=== PATIENT | female | born 1975 | race Caucasian/White ===

== ENCOUNTER 2018-04-10 21:28 | Inpatient (IN) | payer MEDICAID, OTHER ==
[~2018-04-10] VITALS: Ht 177.8 cm; Wt 95.5 kg
[~2018-04-10 21:28] MED LIST: OLAN5TAB2 PO
[2018-04-10 23:13] LABS: BASOPHILS % (AUTO) 0.7 % (0.0-2.0); EOSINOPHILS % (AUTO) 1.9 % (1.0-6.0); HEMATOCRIT 35.1 % (36-46); HEMOGLOBIN 11.5 g/dL (12.0-16.0); LYMPHOCYTES % (AUTO) 23.3 % (22.0-44.0); MEAN CORPUSCULAR HEMOGLOBIN 25.7 pg (26.0-34.0); MEAN CORPUSCULAR HGB CONC 32.7 G/dL (31.0-37.0); MEAN CORPUSCULAR VOLUME 79 fL (80-100); MONOCYTES # (AUTO) 0.5 K/uL (0.1-1.0); MONOCYTES % (AUTO) 6.1 % (2.0-9.0); NEUTROPHILS # (AUTO) 5.9 K/uL (1.8-7.7); PLATELET COUNT (AUTO) 304 K/uL (150-450); RED BLOOD CELL COUNT(AUTO) 4.48 MIL/uL (4.00-5.20); RED CELL DISTRIBUTION WIDTH 18.5 % (11.5-14.5)
[2018-04-10 23:27] LABS: ANION GAP 9 mmol/L (8-16); CARBON DIOXIDE 28 mmol/L (22-29); CHLORIDE 103 mmol/L (98-107); CREATININE 0.79 mg/dL (0.60-1.30); GLOMERULAR FILTR. RATE CALC > 60 mL/min (>60); GLUCOSE,RANDOM 109 mg/dL (70-110); POTASSIUM 3.9 mmol/L (3.5-5.1); SODIUM SERUM 140 mmol/L (136-145); UREA NITROGEN, BLOOD 7 mg/dL (7-18)
[2018-04-10 23:34] LABS: ALANINE AMINOTRANSFERASE 30 U/L (12-78); ALBUMIN 4.1 g/dL (3.4-5.0); ALKALINE PHOSPHATASE 67 U/L (46-116); ASPARTATE AMINOTRANSFERASE 23 U/L (15-37); BILIRUBIN,TOTAL 0.5 mg/dL (0.1-1.0); TOTAL PROTEIN, SERUM 7.6 g/dL (6.4-8.2)
[2018-04-11] MEDS ORDERED: ZOLPIDEM TARTRATE 10 MG TABLET PO PRN (01:45)
[2018-04-11] MEDS ORDERED: HALOPERIDOL 5 MG TABLET PO PRN (01:45)
[2018-04-11] MEDS ORDERED: LORazepam 2 MG TABLET PO PRN (01:45)
[2018-04-11] MEDS ORDERED: LORazepam 2 MG/ML VIAL IM ONE (02:15)
[2018-04-11] MEDS ORDERED: DiphenhydrAMINE HCL 50 MG/ML VIAL IM ONE (02:15)
[2018-04-11] MEDS ORDERED: HALOPERIDOL LACTATE 5 MG/ML VIAL IM ONE (02:15)
[2018-04-11 05:37] VITALS: BP 130/70
[2018-04-11] MEDS: OLANZapine 5 MG TABLET PO SCH ×2 (09:45→17:08)
[2018-04-12 05:57] VITALS: BP 131/80
[2018-04-12 08:16] VITALS: BP 129/71
[2018-04-12 08:26] LABS: CHOL/HDL RATIO 2.9 (3.9-5.7)
[2018-04-12] MEDS: OLANZapine 5 MG TABLET PO SCH ×2 (09:45→16:20)
[2018-04-12 20:32] VITALS: BP 136/83
[2018-04-13 00:30] VITALS: BP 141/97
[2018-04-13 08:20] VITALS: BP 154/93
[2018-04-13] MEDS: OLANZapine 5 MG TABLET PO SCH (08:40)
== END 2018-04-13 14:30 | disposition home or self-care (01) | DRG 751 ==
LOC: EMS 21:30 → B3A 04-11 04:21
PROVIDERS: ATTEND Psychiatry & Neurology Child & Adolescent Psychiatry
DX: F29 Unspecified psychosis not due to a substance or known physiological condition (principal); Z78.1 Physical restraint status; F12.90 Cannabis use, unspecified, uncomplicated; F10.20 Alcohol dependence, uncomplicated; R03.0 Elevated blood-pressure reading, without diagnosis of hypertension; D64.9 Anemia, unspecified
CPT/HCPCS: 87081; 96372; 99285; G0480; J1200; J1630; J2060

== ENCOUNTER 2019-08-03 12:29 | Inpatient (IN) | payer MEDICAID, OTHER ==
[~2019-08-03] VITALS: Ht 175.3 cm; Wt 82.7 kg
[2019-08-03 16:59] LABS: AMPHET/METH SCREEN,URINE POSITIVE (NEGATIVE); BARBITURATE SCREEN, URINE NEGATIVE (NEGATIVE); BENZODIAZEPINES SCREEN,URINE NEGATIVE (NEGATIVE); CANNABINOID SCREEN,URINE POSITIVE (NEGATIVE); COCAINE SCREEN,URINE NEGATIVE (NEGATIVE); METHADONE SCREEN, URINE NEGATIVE (NEGATIVE); OPIATE SCREEN,URINE NEGATIVE (NEGATIVE); PHENCYCLIDINE SCREEN,URINE NEGATIVE (NEGATIVE)
[2019-08-03] MEDS ORDERED: TUBERCULIN, PURIFIED PROTEIN DERIVATIVE 5 TU/0.1 ML SYRINGE ID ONE (17:00)
[2019-08-03] MEDS ORDERED: MAG HYDROX/AL HYDROX/SIMETH ES 30 ML SUSPENSION UDCUP PO PRN (17:00)
[2019-08-03] MEDS ORDERED: LORazepam 2 MG TABLET PO PRN (17:00)
[2019-08-03] MEDS ORDERED: ZOLPIDEM TARTRATE 10 MG TABLET PO PRN (17:00)
[2019-08-03] MEDS ORDERED: MAGNESIUM HYDROXIDE SUSPENSION 30 ML UDCUP PO PRN (17:00)
[2019-08-03] MEDS ORDERED: LOPERAMIDE HCL 2 MG CAPSULE PO PRN (17:00)
[2019-08-03] MEDS ORDERED: OLANZapine 5 MG RAPDIS TABLET PO PRN (17:00)
[2019-08-03] MEDS ORDERED: HydrOXYzine PAMOATE 50 MG CAPSULE PO PRN (17:00)
[2019-08-03] MEDS ORDERED: PROMETHAZINE HCL 25 MG TABLET PO PRN (17:00)
[2019-08-03] MEDS ORDERED: ACETAMINOPHEN 325 MG TABLET PO PRN (17:00)
[2019-08-03] MEDS ORDERED: GuaiFENesin/D-METHORPHAN [SUGAR-FREE] 200-20MG/10 ML SYRUP UDCUP PO PRN (17:00)
[2019-08-03] MEDS ORDERED: LORazepam 2 MG/ML VIAL IM ONE (19:00)
[2019-08-03] MEDS ORDERED: HALOPERIDOL LACTATE 5 MG/ML VIAL IM ONE (19:00)
[2019-08-03] MEDS ORDERED: DiphenhydrAMINE HCL 50 MG/ML VIAL IM ONE (19:00)
[2019-08-03] MEDS: THIAMINE HCL 100 MG TABLET PO SCH (19:23)
[2019-08-03] MEDS: DIVALPROEX SODIUM 500 MG ER TABLET PO SCH (20:47)
[2019-08-03] MEDS: OLANZapine 5 MG RAPDIS TABLET PO SCH (20:47)
[2019-08-03] MEDS ORDERED: INFLUENZA VIRUS VACCINE QVS 2019-20 (3YR+)/PF 60 MCG/0.5 ML SYRINGE IM ONE (22:15)
[2019-08-04] MEDS: NALTREXONE HCL 50 MG TABLET PO SCH (08:59)
[2019-08-04] MEDS: MULTIVITAMINS WITH MINERALS, THERAPEUTIC TABLET PO SCH (08:59)
[2019-08-04] MEDS: FOLIC ACID 1 MG TABLET PO SCH (08:59)
[2019-08-04] MEDS: THIAMINE HCL 100 MG TABLET PO SCH ×2 (09:00→19:49)
[2019-08-04] MEDS: METOPROLOL TARTRATE 25 MG TABLET PO SCH (10:42)
[2019-08-04 12:59] VITALS: BP 142/80
[2019-08-04 16:20] VITALS: BP 128/78
[2019-08-04] MEDS: OLANZapine 5 MG RAPDIS TABLET PO SCH (20:14)
[2019-08-04] MEDS: DIVALPROEX SODIUM 500 MG ER TABLET PO SCH (20:14)
[2019-08-05 08:25] LABS: HEMOGLOBIN A1C 5.8 % (4.5-6.2)
[2019-08-05 08:45] LABS: CHOL/HDL RATIO 2.9 (3.9-5.7); FREE T4 (FREE THYROXINE) 1.1 ng/dL (0.76-1.46); THYROID STIMULATING HORMONE 0.88 uIU/mL (0.36-3.74)
[2019-08-05 08:56] VITALS: BP 150/91
[2019-08-05] MEDS: NALTREXONE HCL 50 MG TABLET PO SCH (08:57)
[2019-08-05] MEDS: METOPROLOL TARTRATE 25 MG TABLET PO SCH (08:57)
[2019-08-05] MEDS: THIAMINE HCL 100 MG TABLET PO SCH ×2 (09:00→16:11)
[2019-08-05] MEDS: FOLIC ACID 1 MG TABLET PO SCH (09:00)
[2019-08-05] MEDS: MULTIVITAMINS WITH MINERALS, THERAPEUTIC TABLET PO SCH (09:00)
[2019-08-05] MEDS ORDERED: DIVA500T52 PO (12:54)
[2019-08-05] MEDS ORDERED: OLAN5TAB30 PO (12:54)
[2019-08-05] MEDS ORDERED: NALT50TA PO (12:54)
[2019-08-05 16:56] VITALS: BP 155/79
[2019-08-05] MEDS: DIVALPROEX SODIUM 500 MG ER TABLET PO SCH (20:15)
[2019-08-05] MEDS ORDERED: OLANZapine 10 MG RAPDIS TABLET PO SCH (21:00)
[2019-08-06 08:24] VITALS: BP 168/85
[2019-08-06] MEDS: THIAMINE HCL 100 MG TABLET PO SCH (09:19)
[2019-08-06] MEDS: NALTREXONE HCL 50 MG TABLET PO SCH (09:19)
[2019-08-06] MEDS: FOLIC ACID 1 MG TABLET PO SCH (09:19)
[2019-08-06] MEDS: METOPROLOL TARTRATE 25 MG TABLET PO SCH (09:19)
[2019-08-06] MEDS: MULTIVITAMINS WITH MINERALS, THERAPEUTIC TABLET PO SCH (09:19)
== END 2019-08-06 15:00 | disposition home or self-care (01) | DRG 750 ==
LOC: EMS 12:30 → 3EC 18:05
PROVIDERS: ADMIT Psychiatry & Neurology Psychiatry; ATTEND Psychiatry & Neurology Psychiatry
DX: F20.0 Paranoid schizophrenia (principal); Z91.19 Patient's noncompliance with other medical treatment and regimen; F12.90 Cannabis use, unspecified, uncomplicated; F17.210 Nicotine dependence, cigarettes, uncomplicated; I10 Essential (primary) hypertension; F15.10 Other stimulant abuse, uncomplicated; Z53.20 Procedure and treatment not carried out because of patient's decision for unspecified reasons
CPT/HCPCS: 83036; 84439; 84443; 86592; 93005; 96372; 99406; J1200; J1630; J2060

== ENCOUNTER 2020-05-06 16:38 | Inpatient (IN) | payer MEDICAID ==
[~2020-05-06] VITALS: Ht 172.7 cm; Wt 81.8 kg
[~2020-05-06 16:38] MED LIST changes: +DIVA-80 PO; +NALT50TA PO; -OLAN5TAB2 PO; +OLAN5TAB30 PO
[2020-05-06] MEDS ORDERED: DiphenhydrAMINE HCL 50 MG/ML VIAL IM ONE (18:45)
[2020-05-06] MEDS ORDERED: HALOPERIDOL LACTATE 5 MG/ML VIAL IM ONE (18:45)
[2020-05-06] MEDS ORDERED: LORazepam 2 MG/ML VIAL IM ONE (18:45)
[2020-05-06 19:38] LABS: BASOPHILS % (AUTO) 0.6 % (0.0-2.0); EOSINOPHILS % (AUTO) 0.5 % (1.0-6.0); HEMATOCRIT 36.1 % (36-46); HEMOGLOBIN 11.3 g/dL (12.0-16.0); LYMPHOCYTES # (AUTO) 1.2 K/uL (1.0-4.8); LYMPHOCYTES % (AUTO) 18.3 % (22.0-44.0); MEAN CORPUSCULAR HEMOGLOBIN 25.2 pg (26.0-34.0); MEAN CORPUSCULAR HGB CONC 31.2 G/dL (31.0-37.0); MEAN CORPUSCULAR VOLUME 81 fL (80-100); MONOCYTES # (AUTO) 0.3 K/uL (0.1-1.0); MONOCYTES % (AUTO) 5.2 % (2.0-9.0); NEUTROPHILS # (AUTO) 4.9 K/uL (1.8-7.7); NEUTROPHILS % (AUTO) 75.4 % (40.0-70.0); PLATELET COUNT (AUTO) 302 K/uL (150-450); RED BLOOD CELL COUNT(AUTO) 4.47 MIL/uL (4.00-5.20); RED CELL DISTRIBUTION WIDTH 19.5 % (11.5-14.5)
[2020-05-06 19:55] LABS: ANION GAP 13 mmol/L (8-16); CALCIUM, TOTAL 9.4 mg/dL (8.8-10.5); CARBON DIOXIDE 24 mmol/L (22-29); CHLORIDE 99 mmol/L (98-107); CREATININE 1.12 mg/dL (0.60-1.30); GLOMERULAR FILTR. RATE CALC 53 mL/min (>60); GLUCOSE,RANDOM 108 mg/dL (70-110); POTASSIUM 3.7 mmol/L (3.5-5.1); SODIUM SERUM 136 mmol/L (136-145); UREA NITROGEN, BLOOD 21 mg/dL (7-18)
[2020-05-06 20:01] LABS: ALANINE AMINOTRANSFERASE 28 U/L (12-78); ALBUMIN 4.3 g/dL (3.4-5.0); ALKALINE PHOSPHATASE 75 U/L (46-116); ASPARTATE AMINOTRANSFERASE 37 U/L (15-37); BILIRUBIN,TOTAL 0.8 mg/dL (0.1-1.0); TOTAL PROTEIN, SERUM 7.8 g/dL (6.4-8.2)
[2020-05-06 20:35] LABS: HCG,QUANTITATIVE < 1 mIU/mL (0-6)
[2020-05-06] MEDS ORDERED: LORazepam 2 MG TABLET PO PRN (20:45)
[2020-05-06] MEDS ORDERED: ZOLPIDEM TARTRATE 10 MG TABLET PO PRN (20:45)
[2020-05-06] MEDS ORDERED: HALOPERIDOL 5 MG TABLET PO PRN (20:45)
[2020-05-06 22:16] LABS: AMPHET/METH SCREEN,URINE POSITIVE (NEGATIVE); BARBITURATE SCREEN, URINE NEGATIVE (NEGATIVE); BENZODIAZEPINES SCREEN,URINE NEGATIVE (NEGATIVE); CANNABINOID SCREEN,URINE POSITIVE (NEGATIVE); COCAINE SCREEN,URINE NEGATIVE (NEGATIVE); METHADONE SCREEN, URINE NEGATIVE (NEGATIVE); OPIATE SCREEN,URINE NEGATIVE (NEGATIVE)
[2020-05-06 22:20] LABS: PHENCYCLIDINE SCREEN,URINE NEGATIVE (NEGATIVE)
[2020-05-06 23:37] VITALS: BP 148/99
[2020-05-07 00:26] VITALS: BP 138/83
[2020-05-07] MEDS ORDERED: PNEUMOCOCCAL VACCINE POLYVALENT 0.5 ML VIAL [PPSV23] IM ONE (01:30)
[2020-05-07 08:10] LABS: CHOL/HDL RATIO 2.1 (3.9-5.7)
[2020-05-07] MEDS ORDERED: PETROLATUM,WHITE 28 GM JELLY TP PRN (11:00)
[2020-05-07] MEDS ORDERED: NICOTINE 14 MG/24 HOUR PATCH TD PRN (11:00)
[2020-05-07] MEDS ORDERED: MAGNESIUM HYDROXIDE SUSPENSION 30 ML UDCUP PO PRN (11:00)
[2020-05-07] MEDS ORDERED: ACETAMINOPHEN 325 MG TABLET PO PRN (11:00)
[2020-05-07] MEDS ORDERED: MAG HYDROX/AL HYDROX/SIMETH ES 30 ML SUSPENSION UDCUP PO PRN (11:00)
[2020-05-07] MEDS ORDERED: ONDANSETRON HCL 4 MG TABLET PO PRN (11:00)
[2020-05-07] MEDS ORDERED: DOCUSATE SODIUM 100 MG CAPSULE PO PRN (11:00)
[2020-05-07] MEDS ORDERED: IBUPROFEN 400 MG TABLET PO PRN (11:00)
[2020-05-07] MEDS ORDERED: CloNIDine HCL 0.1 MG TABLET PO PRN (11:00)
[2020-05-07] MEDS ORDERED: GuaiFENesin/D-METHORPHAN [SUGAR-FREE] 200-20MG/10 ML SYRUP UDCUP PO PRN (11:00)
[2020-05-07] MEDS ORDERED: LOPERAMIDE HCL 2 MG CAPSULE PO PRN (11:00)
[2020-05-07] MEDS ORDERED: ALBUTEROL SULFATE HFA 90 MCG/PUFF 8 GM INHALER IH PRN (11:00)
[2020-05-07 16:07] VITALS: BP 134/77
[2020-05-07] MEDS: DIVALPROEX SODIUM 250 MG ER TABLET PO SCH (17:54)
[2020-05-07] MEDS: OLANZapine 10 MG TABLET PO SCH (21:36)
[2020-05-08 08:34] VITALS: BP 153/75
[2020-05-08] MEDS: DIVALPROEX SODIUM 250 MG ER TABLET PO SCH ×2 (08:50→17:30)
[2020-05-08 16:15] VITALS: BP 132/81
[2020-05-08] MEDS: OLANZapine 10 MG TABLET PO SCH (21:47)
[2020-05-09 08:22] VITALS: BP 138/96
[2020-05-09] MEDS: DIVALPROEX SODIUM 250 MG ER TABLET PO SCH (08:59)
[2020-05-09] MEDS ORDERED: DIVA-85 PO (12:44)
== END 2020-05-09 15:18 | disposition home or self-care (01) | DRG 885 ==
LOC: EMS 16:41 → 3EC 20:33
PROVIDERS: ADMIT Psychiatry & Neurology Psychiatry; ATTEND Psychiatry & Neurology Psychiatry
DX: F20.9 Schizophrenia, unspecified (principal); I10 Essential (primary) hypertension; F10.10 Alcohol abuse, uncomplicated; Y90.9 Presence of alcohol in blood, level not specified; F19.10 Other psychoactive substance abuse, uncomplicated
CPT/HCPCS: G0480; J1200; J1630; J2060